=== PATIENT | female | born 1945 | race Two or more races ===

== ENCOUNTER 2021-05-21 06:42 | Emergency (ER) | payer OTHER ==
[~2021-05-21] VITALS: Ht 170.2 cm; Wt 102.5 kg
[~2021-05-21 06:42] MED LIST: ALBUTEROL17 G1 IH; AVELOX ABC PAC400 MG PO; HUMIBID CS TABL1 TAB PO; METFORMIN HCL500 M1 PO; PARA EL COLESTEROL; SYNTHROID125 MCG PO; TUSSIONEX PENNKI5 ML PO
[2021-05-21] MEDS ORDERED: SIMVASTATIN5 MG (07:30)
== END 2021-05-21 12:53 | disposition home or self-care (01) ==
LOC: ER 06:42
DX: R50.9 Fever, unspecified (principal); I10 Essential (primary) hypertension; Z91.013 Allergy to seafood; Z20.822 Contact with and (suspected) exposure to COVID-19

== ENCOUNTER 2021-06-11 10:04 | Outpatient (CLI) | payer OTHER ==
[~2021-06-11 10:04] MED LIST changes: +SIMVASTATIN5 MG
== END 2021-06-11 10:06 | disposition home or self-care (01) ==
LOC: TOM 10:04
PROVIDERS: ATTEND Internal Medicine Pulmonary Disease
DX: R91.1 Solitary pulmonary nodule (principal); J98.6 Disorders of diaphragm